=== PATIENT | female | born 1985 | race African-American/Black ===

== ENCOUNTER 2016-09-18 04:57 | Inpatient (IN) | payer OTHER ==
[~2016-09-18] VITALS: Ht 157.5 cm; Wt 75.1 kg
[~2016-09-18 04:57] MED LIST: BENADRYL25 MG PO; CELEXA20 MG PO; CELEXA40 MG PO; CIPROFLOXACIN250 MG; CITALOPRAM HBR20 MG; COGENTIN1 MG PO; DEPAKOTE500 MG PO; DEPO-PROVER150 MG/ML IM; DIVALPROEX SOD500 M1; DIVALPROEX SOD500 MG; EFFEXOR; ERGOCALCIF50000 UNIT PO; FANAPT6 MG PO; FLUCONAZOLE150 MG; METRONIDAZOLE500 MG; METRONIDAZOLE500 MG PO; MOTRIN600 MG PO; QUETIAPINE FUM100 MG PO; QUETIAPINE FUMA25 MG; SEROQUEL XR200 MG; SEROQUEL XR300 MG PO; SEROQUEL300 MG PO; SKELAXIN800 MG PO
[2016-09-18 05:22] LABS: ADD MIUA? NO; BILIRUBIN NEGATIVE; BLOOD NEGATIVE; COLOR DK YELLOW ((YELLOW)); GLUCOSE (STRIP) NEGATIVE; KETONES 15; LEUKOCYTES NEGATIVE; NITRITE NEGATIVE; PROTEIN (STRIP) TRACE; SPECIFIC GRAVITY 1.031 (1.000-1.030); UCUL ADDED? NO
[2016-09-18 05:30] LABS: AMPHETAMINE NEGATIVE (500 ng/mL); BARBITURATES NEGATIVE (200 ng/mL); BENZODIAZEPINES NEGATIVE (150 ng/mL); COCAINE PRESUMPTIVE POSITIVE (150 ng/mL); METHADONE NEGATIVE (200 ng/mL); METHAMPHETAMINE NEGATIVE (500 ng/mL); OPIATES (MORPHINE) NEGATIVE (100 ng/mL); OXYCODONE NEGATIVE (100 ng/mL); PHENCYCLIDINE NEGATIVE (25 ng/mL); PROPOXYPHENE NEGATIVE (300 ng/mL); THC CANNABINOIDS NEGATIVE (50 ng/mL); TRICYCLIC ANTIDEPRESSANTS NEGATIVE (300 ng/mL)
[2016-09-18 05:31] LABS: ADD MEDTOX COMMENT Y; INTERNAL CONTROLS VALID? YES
[2016-09-18 05:40] LABS: HEMATOCRIT 32.8 % (36.0-46.0); MCH 27.8 PG (29.0-34.0); MCHC 35.1 G/DL (30.0-36.0); MCV 79.4 FL (83-99); MEAN PLAT.VOLUME 9.1 uM^3 (9.5-12.4); PLATELET COUNT 266 K/uL (156-360); RBC DIS.WIDTH-CV 13.9 % (11.8-14.6); RBC DIS.WIDTH-SD 38.6 % (39-53); RED BLOOD COUNT 4.13 M/uL (3.80-5.20); WHITE BLOOD COUNT 5.5 K/uL (4.1-10.2)
[2016-09-18 05:50] LABS: CHLORIDE 111 mEq/L (99-109); POTASSIUM 3.4 mEq/L (3.7-5.4); SODIUM 144 mEq/L (136-147)
[2016-09-18 05:51] LABS: GLUCOSE 72 mg/dL (70-99)
[2016-09-18 05:53] LABS: ANION GAP 12 MEQ/L (2-14)
[2016-09-18 05:55] LABS: GFR ESTIMATE (CALCULATED) > 59 mL/min/; SERUM ETHYL ALCOHOL 111 mg/dL
[2016-09-18 05:57] LABS: UREA NITROGEN (BUN) 11 mg/dL (9-23)
[2016-09-18 05:58] LABS: SALICYLATE < 5.0 MG/DL (15-30)
[2016-09-18 06:05] LABS: QUANTITATIVE HCG < 4.0 MIU/ML
[2016-09-18] MEDS ORDERED: MEDROXYPRO150 MG/1 M IM (07:46)
[2016-09-18 12:01] VITALS: BP 130/60
[2016-09-18 15:48] VITALS: BP 135/75
[2016-09-19 07:37] VITALS: BP 120/75
[2016-09-19 15:24] VITALS: BP 95/52
[2016-09-20 07:40] VITALS: BP 116/58
[2016-09-20 15:07] VITALS: BP 117/64
[2016-09-21 07:43] VITALS: BP 114/58
[2016-09-21 15:33] VITALS: BP 120/56
[2016-09-22 07:42] VITALS: BP 119/63
[2016-09-22 15:16] VITALS: BP 115/64
[2016-09-23 07:29] VITALS: BP 119/59
== END 2016-09-23 10:38 | disposition home or self-care (01) | DRG 885 ==
LOC: EME 04:57 → EDOF 07:16 → 1WEST 07:16 → EDOF 07:37 → 1WEST 11:36
PROVIDERS: Emergency Medicine
DX: F25.0 Schizoaffective disorder, bipolar type (principal); R45.851 Suicidal ideations; F14.20 Cocaine dependence, uncomplicated; Z72.89 Other problems related to lifestyle; F10.20 Alcohol dependence, uncomplicated; Z88.8 Allergy status to other drugs, medicaments and biological substances
CPT/HCPCS: 80048; 80164; 81003; 84702; 84999; 85027; 90837; 97150 GO; 97166 GO; 99281; 99285; G0480

== ENCOUNTER 2016-11-26 07:31 | Inpatient (IN) | payer OTHER ==
[~2016-11-26] VITALS: Ht 157.5 cm; Wt 69.7 kg
[~2016-11-26 07:31] MED LIST changes: +MEDROXYPRO150 MG/1 M IM
[2016-11-26 08:18] LABS: EOSINOPHIL (%) 0 % (0-5); HEMATOCRIT 33.9 % (36.0-46.0); IMMATURE GRANULOCYTE (%) 0.1 % (0.0-0.7); INSTRUMENT ABS NEUTROPHIL CT 3.9 K/uL; LYMPHOCYTE COUNT 2.8 K/uL (1.0-2.8); MCH 27.4 PG (29.0-34.0); MCHC 33.6 G/DL (30.0-36.0); MCV 81.5 FL (83-99); MEAN PLAT.VOLUME 9.4 uM^3 (9.5-12.4); MONOCYTE (%) 10.7 % (3-12); MONOCYTE COUNT 0.8 K/uL (0-0.8); NEUTROPHIL (%) 51.9 % (45-76); NEUTROPHIL COUNT 3.9 K/uL (1.8-6.4); PLATELET COUNT 271 K/uL (156-360); RBC DIS.WIDTH-CV 13.5 % (11.8-14.6); RBC DIS.WIDTH-SD 39.8 % (39-53); RED BLOOD COUNT 4.16 M/uL (3.80-5.20); WHITE BLOOD COUNT 7.5 K/uL (4.1-10.2)
[2016-11-26 08:26] LABS: CHLORIDE 111 mEq/L (99-109); POTASSIUM 3.7 mEq/L (3.7-5.4); SODIUM 143 mEq/L (136-147)
[2016-11-26 08:27] LABS: GLUCOSE 57 mg/dL (70-99)
[2016-11-26 08:29] LABS: ANION GAP 17 MEQ/L (2-14)
[2016-11-26 08:30] LABS: SERUM ETHYL ALCOHOL 146 mg/dL
[2016-11-26 08:31] LABS: GFR ESTIMATE (CALCULATED) > 59 mL/min/
[2016-11-26 08:32] LABS: UREA NITROGEN (BUN) 20 mg/dL (9-23)
[2016-11-26 08:41] LABS: QUANTITATIVE HCG < 4.0 MIU/ML
[2016-11-26 09:14] LABS: ADD MIUA? YES; BILIRUBIN NEGATIVE; BLOOD NEGATIVE; COLOR YELLOW ((YELLOW)); GLUCOSE (STRIP) NEGATIVE; KETONES 5; LEUKOCYTES NEGATIVE; NITRITE NEGATIVE; PROTEIN (STRIP) 30; SPECIFIC GRAVITY 1.024 (1.000-1.030); UROBILINOGEN 0.2 MG/DL (0.2-1.0)
[2016-11-26 09:16] LABS: BACTERIA RARE /HPF; EPITHELIAL CELLS RARE /HPF; MUCUS TRACE /LPF; RED BLOOD CELLS 0-5 /HPF (0-5); WHITE BLOOD CELLS 0-5 /HPF (0-5)
[2016-11-26 09:23] LABS: AMPHETAMINE NEGATIVE (500 ng/mL); BARBITURATES NEGATIVE (200 ng/mL); BENZODIAZEPINES NEGATIVE (150 ng/mL); COCAINE PRESUMPTIVE POSITIVE (150 ng/mL); INTERNAL CONTROLS VALID? YES; METHADONE NEGATIVE (200 ng/mL); METHAMPHETAMINE NEGATIVE (500 ng/mL); OPIATES (MORPHINE) NEGATIVE (100 ng/mL); OXYCODONE NEGATIVE (100 ng/mL); PHENCYCLIDINE NEGATIVE (25 ng/mL); PROPOXYPHENE NEGATIVE (300 ng/mL); THC CANNABINOIDS NEGATIVE (50 ng/mL); TRICYCLIC ANTIDEPRESSANTS PRESUMPTIVE POSITIVE (300 ng/mL)
[2016-11-26 09:24] LABS: ADD MEDTOX COMMENT Y
[2016-11-26 11:43] VITALS: BP 102/58
[2016-11-26 15:55] VITALS: BP 96/55
[2016-11-27 08:00] VITALS: BP 124/59
[2016-11-27 15:45] VITALS: BP 120/67
[2016-11-28 07:50] VITALS: BP 127/64
[2016-11-28 15:26] VITALS: BP 111/61
[2016-11-29 07:52] VITALS: BP 123/76
[2016-11-29 15:31] VITALS: BP 131/64
[2016-11-30 07:57] VITALS: BP 123/60
[2016-11-30 15:25] VITALS: BP 125/58
[2016-12-01 08:02] VITALS: BP 115/56
[2016-12-01] MEDS ORDERED: CITALOPRAM HBR20 MG PO (09:40)
== END 2016-12-01 12:29 | disposition home or self-care (01) | DRG 885 ==
LOC: EME 07:31 → 1WEST 11:01 → EDOF 11:01 → 1WEST 11:19
PROVIDERS: Emergency Medicine
DX: F20.9 Schizophrenia, unspecified (principal); F17.200 Nicotine dependence, unspecified, uncomplicated; F14.10 Cocaine abuse, uncomplicated
CPT/HCPCS: 80048; 80164; 81003; 84702; 84999; 85025; 90839; 97150 GO; 97165 GO; G0480

== ENCOUNTER 2017-01-14 01:12 | Emergency (ER) | payer OTHER ==
[~2017-01-14] VITALS: Ht 160 cm; Wt 64.9 kg
[~2017-01-14 01:12] MED LIST changes: +CITALOPRAM HBR20 MG PO
[2017-01-14 02:35] LABS: EOSINOPHIL (%) 0 % (0-5); HEMATOCRIT 33.3 % (36.0-46.0); IMMATURE GRANULOCYTE (%) 0.4 % (0.0-0.7); INSTRUMENT ABS NEUTROPHIL CT 3.1 K/uL; LYMPHOCYTE COUNT 1.6 K/uL (1.0-2.8); MCH 27.3 PG (29.0-34.0); MCHC 33.9 G/DL (30.0-36.0); MCV 80.4 FL (83-99); MEAN PLAT.VOLUME 9.8 uM^3 (9.5-12.4); MONOCYTE (%) 8.3 % (3-12); MONOCYTE COUNT 0.4 K/uL (0-0.8); NEUTROPHIL (%) 60.6 % (45-76); NEUTROPHIL COUNT 3.1 K/uL (1.8-6.4); PLATELET COUNT 260 K/uL (156-360); RBC DIS.WIDTH-CV 14.2 % (11.8-14.6); RBC DIS.WIDTH-SD 41.3 % (39-53); RED BLOOD COUNT 4.14 M/uL (3.80-5.20); WHITE BLOOD COUNT 5.1 K/uL (4.1-10.2)
[2017-01-14 02:44] LABS: CHLORIDE 108 mEq/L (99-109); SODIUM 139 mEq/L (136-147)
[2017-01-14 02:46] LABS: GLUCOSE 115 mg/dL (70-99)
[2017-01-14 02:47] LABS: ANION GAP 15 MEQ/L (2-14)
[2017-01-14 02:49] LABS: SERUM ETHYL ALCOHOL 157 mg/dL
[2017-01-14 02:50] LABS: GFR ESTIMATE (CALCULATED) > 59 mL/min/
[2017-01-14 02:51] LABS: UREA NITROGEN (BUN) 14 mg/dL (9-23)
[2017-01-14 02:52] LABS: CREATINE KINASE 210 IU/L (1-294)
[2017-01-14 06:32] LABS: COCAINE PRESUMPTIVE POSITIVE (150 ng/mL); PHENCYCLIDINE NEGATIVE (25 ng/mL); THC CANNABINOIDS PRESUMPTIVE POSITIVE (50 ng/mL)
[2017-01-14 06:33] LABS: ADD MEDTOX COMMENT Y; AMPHETAMINE NEGATIVE (500 ng/mL); BARBITURATES NEGATIVE (200 ng/mL); BENZODIAZEPINES NEGATIVE (150 ng/mL); INTERNAL CONTROLS VALID? YES; METHADONE NEGATIVE (200 ng/mL); METHAMPHETAMINE NEGATIVE (500 ng/mL); OPIATES (MORPHINE) NEGATIVE (100 ng/mL); OXYCODONE NEGATIVE (100 ng/mL); PROPOXYPHENE NEGATIVE (300 ng/mL); TRICYCLIC ANTIDEPRESSANTS NEGATIVE (300 ng/mL)
[2017-01-14 07:43] VITALS: BP 114/63
== END 2017-01-14 07:44 | disposition home or self-care (01) ==
LOC: EME 01:12
PROVIDERS: Emergency Medicine
DX: F19.10 Other psychoactive substance abuse, uncomplicated (principal); F10.129 Alcohol abuse with intoxication, unspecified; S09.90XA Unspecified injury of head, initial encounter; S00.83XA Contusion of other part of head, initial encounter; Y90.6 Blood alcohol level of 120-199 mg/100 ml; Y92.89 Other specified places as the place of occurrence of the external cause; F17.200 Nicotine dependence, unspecified, uncomplicated; Z88.8 Allergy status to other drugs, medicaments and biological substances
CPT/HCPCS: 70450; 72125; 80048; 82550; 84999; 85025; 99281; 99285; G0480; J1630; J2250; J2405; J7030

== ENCOUNTER 2017-01-14 08:27 | Emergency (ER) | payer OTHER ==
[~2017-01-14] VITALS: Ht 157.5 cm; Wt 72.6 kg
[2017-01-14 09:02] LABS: HEMATOCRIT 32.8 % (36.0-46.0); MCH 27.3 PG (29.0-34.0); MCHC 33.8 G/DL (30.0-36.0); MCV 80.6 FL (83-99); MEAN PLAT.VOLUME 10.1 uM^3 (9.5-12.4); PLATELET COUNT 272 K/uL (156-360); RBC DIS.WIDTH-CV 14.6 % (11.8-14.6); RBC DIS.WIDTH-SD 42.6 % (39-53); RED BLOOD COUNT 4.07 M/uL (3.80-5.20); WHITE BLOOD COUNT 5.9 K/uL (4.1-10.2)
[2017-01-14 09:12] LABS: CHLORIDE 114 mEq/L (99-109); POTASSIUM 4.4 mEq/L (3.7-5.4); SODIUM 144 mEq/L (136-147)
[2017-01-14 09:14] LABS: GLUCOSE 119 mg/dL (70-99)
[2017-01-14 09:15] LABS: ANION GAP 9 MEQ/L (2-14)
[2017-01-14 09:17] LABS: SERUM ETHYL ALCOHOL < 10 mg/dL
[2017-01-14 09:18] LABS: GFR ESTIMATE (CALCULATED) > 59 mL/min/
[2017-01-14 09:19] LABS: UREA NITROGEN (BUN) 16 mg/dL (9-23)
[2017-01-14 10:12] LABS: EOSINOPHIL (%) 0.2 % (0-5); HEMATOLOGY COMMENT 1 SN; INSTRUMENT ABS NEUTROPHIL CT 1.8 K/uL; LYMPHOCYTE COUNT 3.2 K/uL (1.0-2.8); MONOCYTE (%) 14.1 % (3-12); MONOCYTE COUNT 0.8 K/uL (0-0.8); NEUTROPHIL (%) 30.8 % (45-76); NEUTROPHIL COUNT 1.8 K/uL (1.8-6.4)
[2017-01-14 11:13] LABS: ADD MIUA? YES; BILIRUBIN NEGATIVE; BLOOD NEGATIVE; COLOR YELLOW ((YELLOW)); GLUCOSE (STRIP) NEGATIVE; KETONES NEGATIVE; LEUKOCYTES NEGATIVE; NITRITE NEGATIVE; PROTEIN (STRIP) 30; SPECIFIC GRAVITY 1.021 (1.000-1.030); UROBILINOGEN 0.2 MG/DL (0.2-1.0)
[2017-01-14 11:18] LABS: BACTERIA NONE SEEN /HPF; EPITHELIAL CELLS 1+ /HPF; MUCUS TRACE /LPF; RED BLOOD CELLS 0-5 /HPF (0-5); WHITE BLOOD CELLS 0-5 /HPF (0-5)
[2017-01-14 11:22] LABS: ADD MEDTOX COMMENT Y; AMPHETAMINE NEGATIVE (500 ng/mL); BARBITURATES NEGATIVE (200 ng/mL); BENZODIAZEPINES NEGATIVE (150 ng/mL); COCAINE PRESUMPTIVE POSITIVE (150 ng/mL); INTERNAL CONTROLS VALID? YES; METHADONE NEGATIVE (200 ng/mL); METHAMPHETAMINE NEGATIVE (500 ng/mL); OPIATES (MORPHINE) NEGATIVE (100 ng/mL); OXYCODONE NEGATIVE (100 ng/mL); PHENCYCLIDINE NEGATIVE (25 ng/mL); PROPOXYPHENE NEGATIVE (300 ng/mL); THC CANNABINOIDS PRESUMPTIVE POSITIVE (50 ng/mL); TRICYCLIC ANTIDEPRESSANTS NEGATIVE (300 ng/mL)
[2017-01-14 13:11] VITALS: BP 109/82
== END 2017-01-14 13:14 | disposition home or self-care (01) ==
LOC: EME 08:27
PROVIDERS: Emergency Medicine
DX: F19.10 Other psychoactive substance abuse, uncomplicated (principal); F14.10 Cocaine abuse, uncomplicated; G24.09 Other drug induced dystonia; F17.200 Nicotine dependence, unspecified, uncomplicated
CPT/HCPCS: 80048 91; 81003; 84999; 85025 91; 99281; 99285; G0480; J0515; J1200

== ENCOUNTER 2017-01-14 22:29 | Emergency (ER) | payer OTHER ==
[~2017-01-14] VITALS: Ht 160 cm; Wt 98.5 kg
[2017-01-14 23:59] VITALS: BP 116/84
== END 2017-01-15 00:02 | disposition home or self-care (01) ==
LOC: EME 22:29
DX: F19.10 Other psychoactive substance abuse, uncomplicated (principal); F41.9 Anxiety disorder, unspecified; F17.200 Nicotine dependence, unspecified, uncomplicated
CPT/HCPCS: 99281; 99284; J1200

== ENCOUNTER 2017-02-11 05:19 | Emergency (ER) | payer OTHER ==
[~2017-02-11] VITALS: Ht 157.5 cm; Wt 98.5 kg
[2017-02-11 06:33] LABS: CHLORIDE 112 mEq/L (99-109); POTASSIUM 3.8 mEq/L (3.7-5.4); SODIUM 143 mEq/L (136-147)
[2017-02-11 06:34] LABS: AMPHETAMINE NEGATIVE (500 ng/mL); BARBITURATES NEGATIVE (200 ng/mL); BENZODIAZEPINES NEGATIVE (150 ng/mL); COCAINE PRESUMPTIVE POSITIVE (150 ng/mL); INTERNAL CONTROLS VALID? YES; METHADONE NEGATIVE (200 ng/mL); METHAMPHETAMINE NEGATIVE (500 ng/mL); OPIATES (MORPHINE) NEGATIVE (100 ng/mL); OXYCODONE NEGATIVE (100 ng/mL); PHENCYCLIDINE NEGATIVE (25 ng/mL); PROPOXYPHENE NEGATIVE (300 ng/mL); THC CANNABINOIDS NEGATIVE (50 ng/mL); TRICYCLIC ANTIDEPRESSANTS PRESUMPTIVE POSITIVE (300 ng/mL)
[2017-02-11 06:35] LABS: GLUCOSE 82 mg/dL (70-99)
[2017-02-11 06:35] LABS: ADD MEDTOX COMMENT Y
[2017-02-11 06:36] LABS: ANION GAP 11 MEQ/L (2-14)
[2017-02-11 06:38] LABS: SERUM ETHYL ALCOHOL 149 mg/dL
[2017-02-11 06:39] LABS: GFR ESTIMATE (CALCULATED) > 59 mL/min/
[2017-02-11 06:40] LABS: UREA NITROGEN (BUN) 18 mg/dL (9-23)
[2017-02-11] MEDS ORDERED: CELEXA20 MG PO (06:52)
[2017-02-11] MEDS ORDERED: SEROQUEL XR300 MG PO (06:52)
[2017-02-11] MEDS ORDERED: DEPAKOTE250 MG PO (06:52)
[2017-02-11 07:22] LABS: HEMATOCRIT 31.3 % (36.0-46.0); MCH 27.5 PG (29.0-34.0); MCHC 33.9 G/DL (30.0-36.0); MCV 81.3 FL (83-99); MEAN PLAT.VOLUME 9.3 uM^3 (9.5-12.4); PLATELET COUNT 275 K/uL (156-360); RBC DIS.WIDTH-CV 13.9 % (11.8-14.6); RBC DIS.WIDTH-SD 40.5 % (39-53); RED BLOOD COUNT 3.85 M/uL (3.80-5.20)
[2017-02-11 08:33] LABS: EOSINOPHIL (%) 0.1 % (0-5); IMMATURE GRANULOCYTE (%) 0.4 % (0.0-0.7); INSTRUMENT ABS NEUTROPHIL CT 3.4 K/uL; LYMPHOCYTE COUNT 3.8 K/uL (1.0-2.8); MONOCYTE (%) 9.8 % (3-12); MONOCYTE COUNT 0.8 K/uL (0-0.8); NEUTROPHIL COUNT 3.4 K/uL (1.8-6.4)
[2017-02-11 14:29] VITALS: BP 106/61
== END 2017-02-11 14:30 | disposition short-term general hospital (02) ==
LOC: EME 05:19
PROVIDERS: Emergency Medicine
DX: F25.0 Schizoaffective disorder, bipolar type (principal); R45.851 Suicidal ideations; F14.10 Cocaine abuse, uncomplicated; F10.10 Alcohol abuse, uncomplicated; F12.10 Cannabis abuse, uncomplicated; Z91.14 Patient's other noncompliance with medication regimen; Y90.6 Blood alcohol level of 120-199 mg/100 ml; F17.200 Nicotine dependence, unspecified, uncomplicated
CPT/HCPCS: 80048; 84999; 85025; 90837; 99281; 99285; G0480

== ENCOUNTER 2017-05-22 04:08 | Inpatient (IN) | payer OTHER ==
[~2017-05-22] VITALS: Ht 160 cm; Wt 66.3 kg
[~2017-05-22 04:08] MED LIST changes: +DEPAKOTE250 MG PO
[2017-05-22 04:59] LABS: MCH 27.8 PG (29.0-34.0); MCHC 33.9 G/DL (30.0-36.0); MEAN PLAT.VOLUME 9.5 uM^3 (9.5-12.4); PLATELET COUNT 230 K/uL (156-360); RBC DIS.WIDTH-CV 13.3 % (11.8-14.6); RBC DIS.WIDTH-SD 40.1 % (39-53); RED BLOOD COUNT 4.39 M/uL (3.80-5.20); WHITE BLOOD COUNT 7.8 K/uL (4.1-10.2)
[2017-05-22 05:09] LABS: CHLORIDE 110 mEq/L (99-109); POTASSIUM 3.9 mEq/L (3.7-5.4); SODIUM 140 mEq/L (136-147)
[2017-05-22 05:11] LABS: GLUCOSE 75 mg/dL (70-99)
[2017-05-22 05:13] LABS: ANION GAP 10 MEQ/L (2-14)
[2017-05-22 05:14] LABS: SERUM ETHYL ALCOHOL 136 mg/dL
[2017-05-22 05:15] LABS: GFR ESTIMATE (CALCULATED) > 59 mL/min/
[2017-05-22 05:17] LABS: UREA NITROGEN (BUN) 6 mg/dL (9-23)
[2017-05-22 05:18] LABS: SALICYLATE < 5.0 MG/DL (15-30)
[2017-05-22 05:26] LABS: ADD MIUA? NO; BILIRUBIN NEGATIVE; BLOOD NEGATIVE; COLOR YELLOW ((YELLOW)); GLUCOSE (STRIP) NEGATIVE; KETONES NEGATIVE; LEUKOCYTES NEGATIVE; NITRITE NEGATIVE; PROTEIN (STRIP) NEGATIVE; SPECIFIC GRAVITY 1.015 (1.000-1.030); UROBILINOGEN 0.2 MG/DL (0.2-1.0)
[2017-05-22 05:28] LABS: UCUL ADDED? NO
[2017-05-22 05:31] LABS: AMPHETAMINE NEGATIVE (500 ng/mL); COCAINE PRESUMPTIVE POSITIVE (150 ng/mL); METHAMPHETAMINE NEGATIVE (500 ng/mL); OPIATES (MORPHINE) NEGATIVE (100 ng/mL); PHENCYCLIDINE NEGATIVE (25 ng/mL); THC CANNABINOIDS NEGATIVE (50 ng/mL)
[2017-05-22 05:32] LABS: ADD MEDTOX COMMENT Y; BARBITURATES NEGATIVE (200 ng/mL); BENZODIAZEPINES NEGATIVE (150 ng/mL); INTERNAL CONTROLS VALID? YES; METHADONE NEGATIVE (200 ng/mL); OXYCODONE NEGATIVE (100 ng/mL); PROPOXYPHENE NEGATIVE (300 ng/mL); TRICYCLIC ANTIDEPRESSANTS NEGATIVE (300 ng/mL)
[2017-05-22 08:10] VITALS: BP 120/73
[2017-05-22 15:21] VITALS: BP 120/58
[2017-05-23 08:00] VITALS: BP 115/63
[2017-05-23 15:52] VITALS: BP 110/69
[2017-05-24 07:30] VITALS: BP 102/52
[2017-05-24 15:51] VITALS: BP 104/57
[2017-05-25 07:46] VITALS: BP 119/52
[2017-05-25 15:13] VITALS: BP 113/53
[2017-05-26 07:54] VITALS: BP 99/55
[2017-05-26 15:37] VITALS: BP 108/56
[2017-05-27 07:54] VITALS: BP 88/50
[2017-05-27 15:56] VITALS: BP 132/71
[2017-05-28 08:16] VITALS: BP 108/56
[2017-05-28 15:56] VITALS: BP 119/55
[2017-05-29 07:56] VITALS: BP 98/54
== END 2017-05-29 12:39 | disposition home or self-care (01) | DRG 885 ==
LOC: EME 04:08 → 1WEST 07:05 → EDOF 07:05 → ENRESERV 08:09 → 1WEST 08:10
PROVIDERS: Emergency Medicine
DX: F25.0 Schizoaffective disorder, bipolar type (principal); F14.20 Cocaine dependence, uncomplicated; F10.99 Alcohol use, unspecified with unspecified alcohol-induced disorder; F17.200 Nicotine dependence, unspecified, uncomplicated; R45.851 Suicidal ideations; Z91.14 Patient's other noncompliance with medication regimen; Z91.5 Personal history of self-harm
CPT/HCPCS: 80048; 80164; 81003; 84999; 85027; 90837; 97150 GO; 97166 GO; 99281; 99285; G0480

== ENCOUNTER 2017-06-06 23:02 | Emergency (ER) | payer OTHER ==
[2017-06-07] MEDS ORDERED: NAPROSYN500 MG PO (00:17)
== END 2017-06-07 00:35 | disposition home or self-care (01) ==
LOC: EME 23:02
DX: S42.022A Displaced fracture of shaft of left clavicle, initial encounter for closed fracture (principal); W22.02XA Walked into lamppost, initial encounter; F17.200 Nicotine dependence, unspecified, uncomplicated; Z88.8 Allergy status to other drugs, medicaments and biological substances
CPT/HCPCS: 73000; 99281; 99283

== ENCOUNTER 2017-06-08 06:15 | Inpatient (IN) | payer OTHER ==
[~2017-06-08] VITALS: Ht 160 cm; Wt 72.2 kg
[~2017-06-08 06:15] MED LIST changes: +NAPROSYN500 MG PO
[2017-06-08 07:13] LABS: EOSINOPHIL (%) 0.2 % (0-5); HEMATOCRIT 34.4 % (36.0-46.0); IMMATURE GRANULOCYTE (%) 0.1 % (0.0-0.7); INSTRUMENT ABS NEUTROPHIL CT 2.9 K/uL; LYMPHOCYTE COUNT 4.9 K/uL (1.0-2.8); MCH 27.4 PG (29.0-34.0); MCV 80.6 FL (83-99); MEAN PLAT.VOLUME 9.5 uM^3 (9.5-12.4); MONOCYTE (%) 7.6 % (3-12); MONOCYTE COUNT 0.6 K/uL (0-0.8); NEUTROPHIL (%) 34.1 % (45-76); NEUTROPHIL COUNT 2.9 K/uL (1.8-6.4); PLATELET COUNT 276 K/uL (156-360); RBC DIS.WIDTH-CV 13.2 % (11.8-14.6); RBC DIS.WIDTH-SD 38.5 % (39-53); RED BLOOD COUNT 4.27 M/uL (3.80-5.20); WHITE BLOOD COUNT 8.4 K/uL (4.1-10.2)
[2017-06-08 07:19] LABS: ADD MIUA? YES; BILIRUBIN NEGATIVE; BLOOD NEGATIVE; COLOR YELLOW ((YELLOW)); GLUCOSE (STRIP) NEGATIVE; KETONES NEGATIVE; LEUKOCYTES SMALL; NITRITE NEGATIVE; PROTEIN (STRIP) NEGATIVE; SPECIFIC GRAVITY 1.009 (1.000-1.030)
[2017-06-08 07:24] LABS: BACTERIA RARE /HPF; EPITHELIAL CELLS RARE /HPF; MUCUS TRACE /LPF; RED BLOOD CELLS 0-5 /HPF (0-5); WHITE BLOOD CELLS 0-5 /HPF (0-5)
[2017-06-08 07:35] LABS: ADD MEDTOX COMMENT Y; AMPHETAMINE NEGATIVE (500 ng/mL); BARBITURATES NEGATIVE (200 ng/mL); BENZODIAZEPINES NEGATIVE (150 ng/mL); COCAINE PRESUMPTIVE POSITIVE (150 ng/mL); INTERNAL CONTROLS VALID? YES; METHADONE NEGATIVE (200 ng/mL); METHAMPHETAMINE NEGATIVE (500 ng/mL); OPIATES (MORPHINE) NEGATIVE (100 ng/mL); OXYCODONE NEGATIVE (100 ng/mL); PHENCYCLIDINE NEGATIVE (25 ng/mL); PROPOXYPHENE NEGATIVE (300 ng/mL); THC CANNABINOIDS NEGATIVE (50 ng/mL); TRICYCLIC ANTIDEPRESSANTS NEGATIVE (300 ng/mL)
[2017-06-08 07:50] LABS: ANION GAP 11 MEQ/L (2-14); CHLORIDE 107 MEQ/L (99-109); POTASSIUM 3.7 MEQ/L (3.7-5.4); SAMPLE HEMOLYSIS CHECK 0; SAMPLE ICTERIC CHECK 0; SAMPLE LIPEMIA CHECK 0; SODIUM 139 MEQ/L (136-147)
[2017-06-08 07:56] LABS: GFR ESTIMATE (CALCULATED) > 59 mL/min/; GLUCOSE 81 mg/dL (70-99); SERUM ETHYL ALCOHOL 111 mg/dL; UREA NITROGEN (BUN) 10 mg/dL (9-23)
[2017-06-08 08:00] LABS: QUANTITATIVE HCG < 4.0 MIU/ML
[2017-06-08 12:35] VITALS: BP 126/74
[2017-06-08 15:36] VITALS: BP 116/67
[2017-06-09 07:55] VITALS: BP 102/65
[2017-06-09 15:52] VITALS: BP 118/64
[2017-06-10 07:31] VITALS: BP 107/55
[2017-06-10 16:07] VITALS: BP 103/54
[2017-06-11 07:46] VITALS: BP 116/64
[2017-06-11 15:28] VITALS: BP 120/70
[2017-06-12 07:53] VITALS: BP 97/61
[2017-06-12 15:51] VITALS: BP 112/63
[2017-06-13 07:47] VITALS: BP 107/62
[2017-06-13 15:56] VITALS: BP 113/56
[2017-06-14 09:30] VITALS: BP 128/68
[2017-06-14 15:34] VITALS: BP 112/59
[2017-06-15 08:12] VITALS: BP 103/69
[2017-06-15] MEDS ORDERED: QUETIAPINE FUM400 MG PO (09:05)
== END 2017-06-15 11:35 | disposition home or self-care (01) | DRG 885 ==
LOC: EME 06:15 → 1WEST 10:15 → EDOF 10:15 → ENRESERV 11:52 → 1WEST 12:26
PROVIDERS: Emergency Medicine
DX: F25.0 Schizoaffective disorder, bipolar type (principal); R45.851 Suicidal ideations; F14.250 Cocaine dependence with cocaine-induced psychotic disorder with delusions; F41.9 Anxiety disorder, unspecified; F10.20 Alcohol dependence, uncomplicated; F17.200 Nicotine dependence, unspecified, uncomplicated; Z59.0 Homelessness; Z91.5 Personal history of self-harm
CPT/HCPCS: 80048; 81003; 84702; 84999; 85025; 90837; 99281; 99285; G0480

== ENCOUNTER 2017-11-17 10:49 | Emergency (ER) | payer OTHER ==
[~2017-11-17] VITALS: Ht 157.5 cm; Wt 73.8 kg
[~2017-11-17 10:49] MED LIST changes: +QUETIAPINE FUM400 MG PO
[2017-11-17 11:22] LABS: HEMATOCRIT 33.6 % (36.0-46.0); HEMOGLOBIN 11.5 G/DL (11.9-15.5); MCH 28.2 PG (29.0-34.0); MCHC 34.2 G/DL (30.0-36.0); MCV 82.4 FL (83-99); PLATELET COUNT 240 K/uL (156-360); RBC DIS.WIDTH-CV 13.5 % (11.8-14.6); RBC DIS.WIDTH-SD 40.2 % (39-53); RED BLOOD COUNT 4.08 M/uL (3.80-5.20); WHITE BLOOD COUNT 6.2 K/uL (4.1-10.2)
[2017-11-17 11:33] LABS: ALBUMIN 4.1 g/dL (3.2-4.8); CHLORIDE 106 mEq/L (99-109); POTASSIUM 4.1 mEq/L (3.7-5.4); SODIUM 136 mEq/L (136-147)
[2017-11-17 11:35] LABS: GLUCOSE 90 mg/dL (70-99); TOTAL PROTEIN 7.8 g/dL (6.4-8.3)
[2017-11-17 11:37] LABS: TOTAL BILIRUBIN 0.4 mg/dL (0.0-1.0)
[2017-11-17 11:38] LABS: SERUM ETHYL ALCOHOL < 10 mg/dL
[2017-11-17 11:39] LABS: ALKALINE PHOSPHATASE 53 IU/L (3-129); CREATININE 0.8 mg/dL (0.6-1.3); GFR ESTIMATE (CALCULATED) > 59 mL/min/
[2017-11-17 11:40] LABS: UREA NITROGEN (BUN) 28 mg/dL (9-23)
[2017-11-17 11:41] LABS: AST (GOT) 23 IU/L (2-34)
[2017-11-17 11:42] LABS: ALT (GPT) 11 IU/L (3-49)
[2017-11-17 11:47] LABS: QUANTITATIVE HCG < 4.0 MIU/ML
[2017-11-17 11:48] LABS: APPEARANCE SL.HAZY ((CLEAR)); BILIRUBIN NEGATIVE; BLOOD NEGATIVE; COLOR YELLOW ((YELLOW)); GLUCOSE (STRIP) NEGATIVE; KETONES 5; LEUKOCYTES NEGATIVE; NITRITE NEGATIVE; PROTEIN (STRIP) 30; SPECIFIC GRAVITY 1.026 (1.000-1.030); UROBILINOGEN 0.2 MG/DL (0.2-1.0)
[2017-11-17 12:04] LABS: BENZODIAZEPINES, URINE SCREEN Negative (200 ng/mL)
[2017-11-17 12:15] LABS: BACTERIA RARE /HPF; EPITHELIAL CELLS 2+ /HPF; MUCUS TRACE /LPF; RED BLOOD CELLS 0-5 /HPF (0-5); UCUL ADDED? NO; WHITE BLOOD CELLS 0-5 /HPF (0-5)
[2017-11-17 12:49] VITALS: BP 127/70
== END 2017-11-17 12:53 | disposition home or self-care (01) ==
LOC: EME 10:49
PROVIDERS: Emergency Medicine
DX: F32.9 Major depressive disorder, single episode, unspecified (principal); Z87.898 Personal history of other specified conditions; Z59.0 Homelessness; F25.0 Schizoaffective disorder, bipolar type; F29 Unspecified psychosis not due to a substance or known physiological condition; F17.200 Nicotine dependence, unspecified, uncomplicated; Z91.5 Personal history of self-harm; Z88.8 Allergy status to other drugs, medicaments and biological substances
CPT/HCPCS: 80053; 80306 90; 81003; 84702; 85027; 90839; 99281; 99284; G0480